=== PATIENT | female | born 1990 | race Caucasian/White ===

== ENCOUNTER 2019-09-26 07:46 | Emergency (ER) | payer OTHER, SELFPAY ==
[2019-09-26 07:53] VITALS: BP 123/77; PULSE 118; RESP 16; TEMP 36.7; O2SAT 99; BMI 21.9
[2019-09-26] MEDS: gabapentin 300 mg Capsule PO (09:26)
[2019-09-26] MEDS: ondansetron 2 mg/ML SDV 2 mL 4 MG IM (09:27)
[2019-09-26] MEDS: acetaminophen 500 mg Tablet 1000 MG PO (10:10)
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
[2019-09-26 11:23] LABS: Alanine Aminotransferase 14 U/L (0-33); Albumin Level 4.5 g/dL (3.5-5.2); Alkaline Phosphatase 102 IU/L (35-105); Anion Gap 16.1 (5-19); Aspartate Amino Transferase 20 U/L (0-32); Blood Urea Nitrogen 8 mg/dL (6-20); Carbon Dioxide 25 mmol/L (22-29); Chloride 102 mmol/L (98-107); Globulin 3.5 g/dL (1.3-4.6); Glucose 94 mg/dL (65-115); Osmolality Calculated 284 mOsm/kg (285-295); Potassium 4.1 mmol/L (3.5-5.1); Sodium 139 mmol/L (136-145); Total Bilirubin 0.4 mg/dL (0.15-1.2)
[2019-09-26] MEDS: azithromycin 250 mg Tablet 1000 MG PO (11:43)
[2019-09-26] MEDS: tetanus-dipt-pertussis 0.5 mL SDV IM (11:45)
[2019-09-26 11:47] LABS: HIV 1 & 2 Antibody Non-Reactive (Non-Reactiv); HIV 1 & 2 Antigen Non-Reactive (Non-Reactiv)
[2019-09-26] MEDS: cefTRIAXone 250 mg SDV IM (11:49)
[2019-09-26] MEDS: emtricitabine/tenofovir 200 mg-300 mg TABLET 1 TAB PO (11:49)
[2019-09-26] MEDS: lidocaine 1% INJ 20 mL IM (11:50)
[2019-09-26 12:14] VITALS: BP 126/84; PULSE 72; RESP 18; O2SAT 98
== END 2019-09-26 12:10 | disposition home or self-care (01) ==
PROVIDERS: Emergency Provider Nurse Practitioner Family
DX: T74.21XA Adult sexual abuse, confirmed, initial encounter (principal); R58 Hemorrhage, not elsewhere classified; R10.2 Pelvic and perineal pain; K62.89 Other specified diseases of anus and rectum; F17.210 Nicotine dependence, cigarettes, uncomplicated; Z23 Encounter for immunization
CPT/HCPCS: 12345; 36415; 80053; 81025; 87806; 90471; 90715; 96372; 99281; E0352; J0696; J2001; J2405; Q0144